=== PATIENT | female | born 1980 | race African-American/Black ===

== ENCOUNTER → 2023-11-14 | Outpatient (CLI) | payer MEDICAID ==
[2023-11-14 14:27] VITALS: BP 132/85; PULSE 110; RESP 16; TEMP 99.2; BMI 46.3
--- NOTE | 2023-11-14 15:39 | P.HPBAR ---
Bariatric H&P - History & Physicial H&P Date: 11/14/23 History & Physicial: Visit/CC: Initial Consult Patient initial contact: Initial weight: 115.666 kg Initial weight in pounds: 255.00 Height: 5 ft 2.25 in Initial BMI: 46.3 Last weight: Current weight: 115.666 kg Current weight in pounds: 255.00 Current BMI: 46.3 [place] body weight (based on NIH guidelines): 50.462 kg Excess body weight loss: 0.0% The patient is a 43 year-old F who presents for Bariatric Assessment. Patient here to discuss weight loss surgery. She has come over from [facility]. 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 Apparently nobody there is performing bariatrics. Patient's BMI is 46. She did lose significant weight with Saxenda approximately 50 pounds but after stopping it gained it all back. Patient has a sleep study scheduled in January. Describes chronic joint pain. No tobacco use. No GERD symptoms. Denies dysphagia. Had an EGD performed in 2018 she thinks was normal. Surgical history includes inguinal hernia ovarian cyst and laparoscopic cholecystectomy. Review of Systems The patient denies any acute changes in vision or hearing, no dysphagia or odynophagia, no chest pain or shortness of breath, no dysuria or hematuria, no headache, no runny nose, no rectal bleeding or melena, no unexplained weight loss Past Medical History Smoking Status: Unknown if ever smoked Surgical - Exam Vital Signs Temp Pulse Resp BP 99.2 F 110 H 16 132/85 11/14/23 14:16 11/14/23 14:16 11/14/23 14:16 11/14/23 14:16 Physical exam: General: Well-developed, well-nourished HEENT: Normocephalic, sclerae nonicteric Abdomen: Nontender, nondistended Extremities: No edema Neuro: Alert and oriented Bariatric Assessment & Plan (1) Morbid obesity with BMI of 45.0-49.9, adult Narrative/Plan: 43-year-old female with morbid obesity. Surgical options including both risks benefits and average weight loss discussed in detail. We discussed both sleeve gastrectomy and gastric bypass in most detail. She remains interested in sleeve gastrectomy. Will proceed with preoperative EGD. She will follow-up after that study to discuss surgical planning and more details. Status: Acute Bariatric Checklist Checklist: Plan: Checklist: EGD: 1. Hiatal hernia: 2. H. Pylori: HgbA1c: Vitamin D: Smoking: Primary care physician referral: Psychiatry clearance: Cardiology clearance: Sleep study: Diet journal: VTE risk score: VTE risk level: Rehab needs at discharge:
[2023-11-14 19:21] LABS: HCT 41.4 % (37.2-46.3); HGB 13.4 g/dL (12.0-15.0); MCH 29.4 pg (27.0-32.0); MCHC 32.4 g/dL (32.0-37.0); MCV 90.8 FL (80.0-97.0); Mean Platelet Volume 11.8 FL (9.5-12.2); NRBC Per 100 WBC 0 X 10*3/uL (0.00-0.01); Platelet Count 284 X 10*3/uL (140-440); RBC 4.56 X 10*6/uL (4.10-5.20); RDW 12.8 % (11.5-14.5); WBC 9.11 X 10*3/uL (4.50-10.00)
[2023-11-15 02:28] LABS: ALT 25 U/L (8-44); AST 18 U/L (13-35); Albumin 4.5 g/dL (3.8-4.9); Albumin/Globulin Ratio 1.61 Ratio (1.60-3.17); Alkaline Phosphatase 88 U/L (41-126); BUN/Creat Ratio 16.25 Ratio (12.00-20.00); Calcium 9.8 mg/dL (8.7-10.3); Carbon Dioxide 25.2 mmol/L (21.6-31.8); Chloride 103 mmol/L (96-109); Globulin 2.8 g/dL (1.6-3.3); Glucose 98 mg/dL (70-110); Iron 52 UG/DL (50-170); Potassium 4.1 mmol/L (3.5-5.5); Sodium 139 mmol/L (135-145); Total Bilirubin <0.2 mg/dL (0.3-1.2); Total Protein 7.3 g/dL (6.2-8.2)
[2023-11-16 13:53] LABS: Anabasine Urine <2.0 ng/mL (<2.0)
== END ==
LOC: BARWHC3 14:01
PROVIDERS: ATTEND Surgery
DX: E66.01 Morbid (severe) obesity due to excess calories (principal); K90.89 Other intestinal malabsorption; E55.9 Vitamin D deficiency, unspecified; Z68.42 Body mass index [BMI] 45.0-49.9, adult; Z90.49 Acquired absence of other specified parts of digestive tract
CPT/HCPCS: 36415; 80053; 80323; 82306; 82607; 82746; 83036; 83540; 84425; 85027; 93005; 99202

== ENCOUNTER → 2023-12-24 | Day surgery (SDC) | payer MEDICAID, OTHER ==
[2023-12-18 09:45] VITALS: BMI 46.6
[~2023-12-24] MED LIST: PROPOFOL 10 MG/ML 20 ML VIAL IV ONE
[2023-12-24 13:41] VITALS: RESP 16; TEMP 97.8
[2023-12-24] MEDS: LACTATED RINGERS 1,000 ML IV SCH (13:47)
[2023-12-24] MEDS: IV FLUID CONTINUATION 1,000 ML IV ONE (13:48)
--- NOTE | 2023-12-24 13:58 | P.GSHP ---
History of Present Illness H&P Date: 12/24/23 Chief Complaint: GERD 43-year-old female here today for EGD. Patient with complaints of mild reflux at times. Being evaluated for sleeve gastrectomy. No dysphagia. Past Medical History Past Medical History: Osteoarthritis (OA) Additional Past Medical History / Comment(s): pinched nerve, History of Any Multi-Drug Resistant Organisms: None Reported Past Surgical History: Cholecystectomy, Hernia Repair Additional Past Surgical History / Comment(s): ovarian cyst removed, egd Past Anesthesia/Blood Transfusion Reactions: No Reported Reaction Smoking Status: Never smoker Medications and Allergies Home Medications Medication Instructions Recorded Confirmed Type Topiramate [Topamax] 100 mg PO BID 11/15/23 12/18/23 History Gabapentin [Neurontin] 100 mg PO TID PRN 12/18/23 12/18/23 History Allergies Allergy/AdvReac Type Severity Reaction Status Date / Time No Known Allergies Allergy Verified 12/24/23 13:38 Surgical - Exam Vital Signs Temp Pulse Resp BP Pulse Ox 97.8 F 67 16 146/77 100 12/24/23 13:40 12/24/23 13:40 12/24/23 13:40 12/24/23 13:40 12/24/23 13:40 Physical exam: General: Well-developed, well-nourished HEENT: Normocephalic, sclerae nonicteric Abdomen: Nontender, nondistended Extremities: No edema Neuro: Alert and oriented Assessment and Plan (1) GERD (gastroesophageal reflux disease) Narrative/Plan: Will proceed with EGD at this time. Current Visit: Yes Status: Acute Code(s): K21.9 - GASTRO-ESOPHAGEAL REFLUX DISEASE WITHOUT ESOPHAGITIS SNOMED Code(s): 326675540
--- NOTE | 2023-12-24 14:05 | P.PCN ---
Date of Procedure: 12/24/23 Procedure(s) Performed: Preoperative Dx: GERD, presurgical Postoperative Dx: Gastritis, hiatal hernia Procedure: EGD with Bx Anesthesia: Sedation Endoscopist: Dr. Navas Specimens: Antrum Endoscopic Procedure: The patient was on the endoscopy table in the left decubitus position. The Olympus gastroscope was inserted into the oropharynx and passed under direct visualization to the region of the third portion of the duodenum. From that point the scope was slowly withdrawn inspecting all surfaces carefully. There were no neoplastic inflammatory or polypoid lesions throughout the duodenum. The pylorus was widely patent. The stomach was carefully inspected. There was mild gastritis. A biopsy of the antrum took place to rule out H. pylori. Retroflexion revealed a small hiatal hernia. The GE junction was present 1.5 to 2 cm above the diaphragmatic hiatus. The remainder of the esophagus was then carefully examined. There were no neoplastic inflammatory or polypoid lesions throughout the visualized esophagus. The patient was then taken to the recovery room in stable condition per anesthe milly guidelines. Recommendations: Await biopsy results. Resume diet. Continue presurgical workup.
[2023-12-24 14:24] VITALS: BP 119/80; PULSE 83
== END ==
LOC: ORWHC2ENDO 12:56
PROVIDERS: ATTEND Surgery
DX: K29.50 Unspecified chronic gastritis without bleeding (principal); K44.9 Diaphragmatic hernia without obstruction or gangrene; K21.9 Gastro-esophageal reflux disease without esophagitis; E66.01 Morbid (severe) obesity due to excess calories; Z68.42 Body mass index [BMI] 45.0-49.9, adult; Z79.899 Other long term (current) drug therapy
CPT/HCPCS: 81025; 88305; 43239; J2704

== ENCOUNTER → 2024-01-20 | Outpatient (CLI) | payer MEDICAID ==
[2024-01-20 14:53] VITALS: BMI 46.7
== END ==
LOC: BARWHC3 13:03
PROVIDERS: ATTEND Surgery
DX: E66.01 Morbid (severe) obesity due to excess calories (principal); Z71.3 Dietary counseling and surveillance
CPT/HCPCS: 97804; 99211

== ENCOUNTER → 2024-02-04 | Outpatient (CLI) | payer MEDICAID ==
[2024-02-04 12:55] VITALS: BP 139/60; PULSE 98; RESP 16; TEMP 98.2; BMI 45.8
--- NOTE | 2024-02-04 14:54 | P.BASOAP ---
Subjective Progress Note Date: 02/04/24 Principal diagnosis: Morbid obesity Patient returns after recent preoperative EGD. EGD showed mild gastritis and small hiatal hernia. Patient denies any significant reflux symptoms. No dysphagia. Remains interested in sleeve gastrectomy. Objective - Vital Signs Vital signs: Vital Signs Temp 98.2 F 02/04/24 12:52 Pulse 98 02/04/24 12:52 Resp 16 02/04/24 12:52 BP 139/60 02/04/24 12:52 Pulse Ox FiO2 Intake & Output 02/03/24 02/04/24 02/04/24 18:59 06:59 18:59 Weight 114.759 kg - Exam Abdomen: Soft, nontender, nondistended Assessment/Plan (1) Morbid obesity with BMI of 45.0-49.9, adult Narrative/Plan: 44-year-old female with morbid obesity. Recent EGD results reviewed. Patient with small hiatal hernia noted. Increased risk of postoperative reflux symptoms potentially even resulting in need for conversion to gastric bypass reviewed in detail. Despite that patient prefers the complication profile of the sleeve gastrectomy to the Flo-en-Y gastric bypass and would like to proceed with sleeve. Will schedule. Plan: Date: 02/04/24 Initial Weight: 115.666 kg Initial BMI: 46.3 Current Weight: 114.759 kg Current BMI: 45.8 Type of Surgery: Total Volume in Band: Previous Volume: Volume Removed: Volume Added: Band Size:
== END ==
LOC: BARWHC3 12:42
PROVIDERS: ATTEND Surgery
DX: E66.01 Morbid (severe) obesity due to excess calories (principal); K29.70 Gastritis, unspecified, without bleeding; K44.9 Diaphragmatic hernia without obstruction or gangrene; K21.9 Gastro-esophageal reflux disease without esophagitis; Z68.42 Body mass index [BMI] 45.0-49.9, adult
CPT/HCPCS: 99211

== ENCOUNTER 2024-03-13 07:30 | Inpatient (IN) | payer MEDICAID ==
[2024-03-06 11:16] VITALS: BMI 46.3
--- NOTE | 2024-03-12 15:27 | P.GSHP ---
History of Present Illness H&P Date: 03/12/24 Chief Complaint: Morbid obesity 44-year-old female initially seen in the bariatric center in November of this year. Patient with complaints of morbid obesity. Comorbidities include chronic joint pain and possible sleep apnea. No tobacco use. History of previous inguinal hernia, ovarian cyst, and lap dannielle. Recent EGD showed small hiatal hernia and mild gastritis. Patient without significant reflux symptoms. Past Medical History Past Medical History: Osteoarthritis (OA) Additional Past Medical History / Comment(s): pinched nerve, History of Any Multi-Drug Resistant Organisms: None Reported Past Surgical History: Cholecystectomy, Hernia Repair Additional Past Surgical History / Comment(s): ovarian cyst removed, egd Past Anesthesia/Blood Transfusion Reactions: No Reported Reaction Smoking Status: Never smoker - Past Family History Mother Family Medical History: No Reported History Medications and Allergies Home Medications Medication Instructions Recorded Confirmed Type No Known Home Medications 03/06/24 03/06/24 History Allergies Allergy/AdvReac Type Severity Reaction Status Date / Time No Known Allergies Allergy Verified 12/24/23 13:38 Surgical - Exam Physical exam: General: Well-developed, well-nourished HEENT: Normocephalic, sclerae nonicteric Abdomen: Nontender, nondistended Extremities: No edema Neuro: Alert and oriented Assessment and Plan (1) Morbid obesity with BMI of 45.0-49.9, adult Narrative/Plan: 44-year-old female with morbid obesity. Will proceed with laparoscopic da Dariusz assisted sleeve gastrectomy with repair hiatal hernia, possible open. The risks of bleeding, infection, stenosis, stricture, leak, abscess, fistula formation, peritonitis, poor weight loss, reflux, vomiting, conversion to an open procedure, aborting sleeve gastrectomy, CO, PE, DVT, and were discussed. The patient understands and wishes to proceed. Status: Acute Code(s): E66.01 - MORBID (SEVERE) OBESITY DUE TO EXCESS CALORIES; Z68.42 - BODY MASS INDEX [BMI] 45.0-49.9, ADULT SNOMED Code(s): 479511649
[~2024-03-13 07:30] MED LIST changes: +HEPARIN SODIUM,PORCINE 5,000 UNIT/ML 1 ML VIAL SQ PRN; +ONDANSETRON 4 MG/2 ML VIAL IVP PRN; -PROPOFOL 10 MG/ML 20 ML VIAL IV ONE
[2024-03-13] MEDS ORDERED: MIDAZOLAM 2 MG/2 ML VIAL IV PRN (10:47)
[2024-03-13] MEDS ORDERED: fentaNYL (PF) 50 MCG/ML 2 ML AMP IV PRN (10:47)
[2024-03-13] MEDS ORDERED: LIDOCAINE 1% (10MG/ML) FOR IV START INTRADERMA PRN (10:47)
[2024-03-13] MEDS: ACETAMINOPHEN TAB 500 MG TAB PO PRN (11:03)
[2024-03-13] MEDS: LACTATED RINGERS 1,000 ML IV SCH (11:21)
[2024-03-13] MEDS: ONDANSETRON 4 MG/2 ML VIAL IVP ONE (11:21)
[2024-03-13] MEDS: ENOXAPARIN 40 MG/0.4 ML SYRINGE SQ PRN (11:22)
[2024-03-13] MEDS: DEXAMETHASONE SOD PHOSPHATE 4 MG/ML 1 ML VIAL IV ONE (11:22)
[2024-03-13] MEDS: IV FLUID CONTINUATION 1,000 ML IV ONE (11:23)
[2024-03-13] MEDS ORDERED: SUCCINYLCHOLINE CHLORIDE 200 MG/10 ML VIAL IV ONE (12:14)
[2024-03-13] MEDS ORDERED: LIDOCAINE 1% INJ 10MG/ML (20 ML MDV) ONE (12:14)
[2024-03-13] MEDS ORDERED: GLYCOPYRROLATE 0.2 MG/ML 2 ML VIAL ONE (12:14)
[2024-03-13] MEDS ORDERED: MIDAZOLAM 2 MG/2 ML VIAL ONE (12:14)
[2024-03-13] MEDS ORDERED: NEOSTIGMINE 1 MG/ML 10 ML VIAL ONE (12:14)
[2024-03-13] MEDS ORDERED: PROPOFOL 10 MG/ML 20 ML VIAL IV ONE (12:14)
[2024-03-13] MEDS ORDERED: ROCURONIUM 10 MG/ML (5 ML VIAL) IV ONE (12:14)
[2024-03-13] MEDS ORDERED: fentaNYL (PF) 50 MCG/ML 2 ML AMP ONE (12:14)
[2024-03-13] MEDS ORDERED: HYDROmorphone (PF) 1 MG/ML ONE (12:14)
[2024-03-13] MEDS: BUPIVACAINE (PF) 0.25% 30 ML VIAL SQ ONE ×2 (12:46)
[2024-03-13] MEDS: LACTATED RINGERS 1,000 ML IV ONE (14:08)
[2024-03-13] MEDS ORDERED: diphenhydrAMINE 50 MG/ML 1 ML VIAL IVP PRN (14:17)
[2024-03-13] MEDS ORDERED: NALOXONE 0.4 MG/ML 1 ML VIAL IV PRN (14:17)
[2024-03-13] MEDS ORDERED: HYOSCYAMINE ORAL DROPS 1.875 MG/15 ML BOTTLE PO PRN (14:17)
[2024-03-13] MEDS ORDERED: SIMETHICONE 80 MG CHEWABLE PO PRN (14:17)
[2024-03-13] MEDS ORDERED: HYDROmorphone 0.5 MG/0.5 ML SYRINGE IVP PRN (14:17)
--- NOTE | 2024-03-13 14:22 | P.OP ---
Date of Procedure: 03/13/24 Procedure(s) Performed: PREOPERATIVE DIAGNOSIS: Morbid obesity POSTOPERATIVE DIAGNOSIS: Same PROCEDURE: Da Dariusz assisted laparoscopic sleeve gastrectomy SURGEON: Eloise EBL: Minimal ANESTHESIA: General COMPLICATIONS: None OPERATIVE PROCEDURE: Patient was placed in the operating table in the supine position. The patient was then placed under general anesthesia at that time. The abdomen was prepped and draped in the usual sterile fashion. A 5 mm optical trocar was placed in the left upper quadrant 20 cm inferior to the xiphoid process. Insufflation took place up to 15 mmHg. No adhesions were seen. A 5 mm subxiphoid incision was made and the medium Zainab retractor was used to elevate the left lobe of liver anteriorly. This was held in place using the fixed arm retractor. An additional 12 mm trocar was placed in the right paramedian location and 2 additional 8 mm trochars were placed in the left upper quadrant one medial and one lateral to the initially placed optical trocar. All of these trochars were placed along the same plane. The initial 5 was then switched to an 8 mm trocar. The robot was then docked appropriately. The 8 mm camera was placed in the left paramedian trocar site down viewing. A fenestrated bipolar was placed in arm 1, arm 3 had the vessel sealer, arm 4 had the small grasper retractor. The hiatus was inspected and there was no visible hiatal hernia. At that point I moved to the distal aspect of the greater curvature the stomach. The short gastric vasculature were divided using the vessel sealer. This dissection took place distally until we were 4 cm from the pylorus. The posterior adhesions were divided as well. The dissection then took place proximally along the stomach until the posterior short gastrics were divided and the fundus of the stomach was fully mobilized. Once the stomach was fully mobilized the blunt tipped 40-Namibian bougie dilator was advanced into the stomach and advanced all the way to the prepyloric location. The patient's stomach by palpation seemed to be of average thickness. The first firing of the stapler was a green load. Second load was a blue load. This first 2 loads were used without buttressing. The next 3 loads were blue loads with seam guard. No further loads were required. The stomach was then placed in the right upper quadrant after it was fully excised. Pressure was then dropped to 8 mm for 2-3 minutes. The staple line was inspected and no bleeding was seen. Tisseel fibrin glue was then used along the length of the staple line. The robot was then undocked. The da Dariusz laparoscope was used and the stomach was removed from the 12 mm trocar site without difficulty. The fascia at the 12mm site was closed using [id number] 0 Vicryl sutures with the laparoscopic suture passer and Larry Michael technique. The insufflation was evacuated. The skin at all 5 incisions were closed using 4-0 Monocryl sutures. Skin glue was then applied. DISPOSITION: Stable to recovery room
[2024-03-13] MEDS: HYDROmorphone 0.5 MG/0.5 ML SYRINGE IVP PRN (14:55)
[2024-03-13] MEDS: KETOROLAC 15 MG/ML 1 ML VIAL IM STA (15:21)
[2024-03-13] MEDS: ALBUTEROL NEBULIZED 2.5 MG/3 ML INHALATION SCH (16:15)
[2024-03-13] MEDS: 0.9% NACL WITH KCL 20 MEQ/L 1,000 ML IV SCH (16:15)
[2024-03-13] MEDS: DEXAMETHASONE SOD PHOSPHATE 4 MG/ML 1 ML VIAL IVP SCH (16:25)
[2024-03-13] MEDS: HYDROmorphone 1 MG/ML 1 ML SYRINGE IVP PRN (16:29)
[2024-03-13] MEDS: ACETAMINOPHEN IV (For NPO) 1,000 MG in EMPTY BAG 1 BAG IVPB SCH (17:08)
[2024-03-13] MEDS: ONDANSETRON 4 MG/2 ML VIAL IVP PRN (17:49)
--- NOTE | 2024-03-13 18:24 | P.CONS ---
History of Present Illness - Reason for Consult Consult date: 03/13/24 Medical Management Requesting physician: Ricardo Navas - History of Present Illness History of Presenting Illness: Patient is a pleasant 44-year-old female with a past medical history of morbid obesity. She is currently admitted under general surgery team status post laparoscopic sleeve gastrectomy. We were consulted for medical management throughout hospitalization. Patient was seen and fully evaluated after arrival to room 452. Patient postoperative day 0. She is currently experiencing mild postoperative hypoxia and is on 3 L O2 with SpO2 of 92%. Patient reports moderate to severe postoperative pain and nausea at this time. She denies any episodes of vomiting, chest pain, palpitations, shortness of breath, or any other complaints at this time. Review of systems: Pertinent positives and negatives as discussed in HPI, a complete review of systems was performed and all other systems are negative. Physical exam: Vital signs reviewed and stable. General: Nontoxic, no distress and appears stated age. Obese. Derm: Skin warm and dry, normal coloration for ethnicity. Head: Atraumatic, normocephalic and symmetric. Eyes: EOM's intact, no lid lag, and anicteric sclera Mouth: no lip lesions, mucus membranes moist Cardiovascular: regular rate and rhythm with normal S1S2, no murmur, positive posterior tibial pulses bilaterally, and cap refill < 2 seconds. Lungs: Respirations even, regular, and unlabored on 3 L O2. Lungs CTA bilaterally, no rhonchi, no rales, no wheezing, and no accessory muscle usage. Abdominal: soft, mild tenderness surrounding laparoscopic incision sites, no guarding, no appreciable organomegaly. Abdominal binder in place. Ext: ROM intact. No gross muscle atrophy, no edema, no contractures Neuro: Speech clear, face symmetrical and CN II-XII grossly intact with no noted focal neuro deficits Psych: Alert and oriented to person, place, time, and situation. Appropriate and pleasant affect. Assessment and Plan of Care: Acute postoperative hypoxia -Likely secondary to postoperative atelectasis -Patient to be encouraged to cough and deep breathe and use incentive spirometry 10-15 times hourly while awake. -Continue supplemental oxygen to maintain SpO2 equal to or greater than 92% currently on 3 L with SpO2 of 92%. Wean oxygen as patient tolerates. Postoperative nausea and pain -Orders placed for Compazine 10 mg IVP every 6 hours to be administered for persistent nausea unrelieved by Zofran. -Continue Ofirmev 1000 mg every 6 hours continue symptomatic care and pain management and Dilaudid 0.5 mg every 3 hours as needed for moderate pain and Dilaudid 1 mg every 3 hours as needed for severe pain. Morbid obesity with BMI of 45.0 kg/m Status post laparoscopic sleeve gastrectomy -Management per primary admitting general surgery team including DVT prophylaxis, pain management, wound/dressing management, and advancement of diet. -Patient currently on DVT prophylaxis with Lovenox. -Recommend structured outpatient weight management program after discharge. Data and imaging reviewed: -Reviewed operative note. -Vital signs reviewed and stable. Blood pressure 141/83, heart rate 96, respiratory rate 18, and SpO2 of 92% on 3 L -Preoperative labs reviewed showing hemoglobin of 13.4 and platelet count of 284,000. BMP and liver profile were normal findings. -Will follow-up on postoperative labs and place additional orders if indicated based upon these findings. Thank you for allowing us to participate in the care of this pleasant patient. Do not hesitate to contact us with questions. [facility] can be [facility] all hours of the day at [phone] or via [employer]. Patient was seen independently by Nurse Practitioner. This document was prepared using [employer] dictation software. Please allow for errors in medical physicist while rare they do occur. I reviewed the documentation as provided by the NIKKO above, who is the original author of this note. I agree with the documented assessment and plan, with the following changes: none Past Medical History Past Medical History: Osteoarthritis (OA) Additional Past Medical History / Comment(s): pinched nerve, History of Any Multi-Drug Resistant Organisms: None Reported Past Surgical History: Cholecystectomy, Hernia Repair Additional Past Surgical History / Comment(s): ovarian cyst removed, egd Past Anesthesia/Blood Transfusion Reactions: No Reported Reaction Smoking Status: Never smoker - Past Family History Mother Family Medical History: No Reported History Medications and Allergies Home Medications Medication Instructions Recorded Confirmed Type Omeprazole [PriLOSEC] 20 mg PO AC-BRKFST #90 cap 03/13/24 Rx Ondansetron Odt [Zofran Odt] 4 mg PO Q8HR PRN #9 tab 03/13/24 Rx Simethicone 40 mg/0.6 ml Drops 40 mg PO PCHS PRN #30 ml 03/13/24 Rx [Mylicon Drops] bisacodyL [Dulcolax] 5 mg PO DAILY PRN #10 tab 03/13/24 Rx Allergies Allergy/AdvReac Type Severity Reaction Status Date / Time No Known Allergies Allergy Verified 03/13/24 10:56 Physical Exam Osteopathic Statement: *. No significant issues noted on an osteopathic structural exam other than those noted in the History and Physical/Consult. Vitals: Vital Signs Temp Pulse Resp BP Pulse Ox 03/13/24 15:40 80 16 120/57 94 L 03/13/24 15:25 89 16 118/60 94 L 03/13/24 15:10 92 16 118/53 95 03/13/24 14:55 84 16 121/58 97 03/13/24 14:40 96 16 126/60 98 03/13/24 14:25 97.5 F L 99 14 132/65 95 03/13/24 10:58 98.0 F 90 18 133/93 98 Intake and Output 03/13/24 03/13/24 03/13/24 06:59 14:59 22:59 Intake Total 1150 Output Total 10 Balance 1140 Intake: IV 1150 Output: Estimated Blood Loss 10 Other: Weight 111.7 kg
[2024-03-13] MEDS: PROCHLORPERAZINE INJ 10 MG/2 ML VIAL IVP PRN (20:47)
[2024-03-14] MEDS: ENOXAPARIN 40 MG/0.4 ML SYRINGE SQ SCH (00:14)
[2024-03-14 09:42] LABS: Basophils # (A) 0.02 X 10*3/uL (0.00-0.10); Basophils % (A) 0.1 %; Eosinophils # (A) 0 X 10*3/uL (0.04-0.35); Eosinophils % (A) 0 %; HCT 42.2 % (37.2-46.3); HGB 13.9 g/dL (12.0-15.0); Lymphocytes # (A) 1.15 X 10*3/uL (0.90-5.00); Lymphocytes % (A) 7.3 %; MCH 29.5 pg (27.0-32.0); MCHC 32.9 g/dL (32.0-37.0); MCV 89.6 FL (80.0-97.0); Mean Platelet Volume 11.5 FL (9.5-12.2); Monocytes # (A) 0.44 X 10*3/uL (0.20-1.00); Monocytes % (A) 2.8 %; NRBC Per 100 WBC 0 X 10*3/uL (0.00-0.01); Neutrophils % (A) 89.4 %; Platelet Count 303 X 10*3/uL (140-440); RBC 4.71 X 10*6/uL (4.10-5.20); RDW 13.1 % (11.5-14.5); WBC 15.78 X 10*3/uL (4.50-10.00)
[2024-03-14 10:13] LABS: Chloride 105 mmol/L (96-109); Magnesium 1.8 mg/dL (1.5-2.4); Phosphorus 1.8 mg/dL (2.4-5.1); Potassium 4.8 mmol/L (3.5-5.5); Sodium 135 mmol/L (135-145)
[2024-03-14] MEDS: PANTOPRAZOLE 40 MG/10 ML VIAL IVP SCH (10:17)
[2024-03-14] MEDS: 0.9% NACL WITH KCL 20 MEQ/L 1,000 ML IV SCH (10:24)
--- NOTE | 2024-03-14 10:35 | P.PN ---
Subjective Progress Note Date: 03/14/24 Hospital Course: Patient is a pleasant 44-year-old female with a past medical history of morbid obesity. She is currently admitted under general surgery team status post laparoscopic sleeve gastrectomy. We were consulted for medical management throughout hospitalization. Physical exam: Patient seen and fully evaluated at bedside, reports moderate pain and nausea this morning. 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 Placed 20-gauge IV in patient's right AC. RN notified and to bedside to medicate at this time. Patient denies having any other complaints, questions, concerns, or needs at this time. Vital signs reviewed and stable. General: Nontoxic, no distress and appears stated age. Obese. Derm: Skin warm and dry, normal coloration for ethnicity. Head: Atraumatic, normocephalic and symmetric. Eyes: EOM's intact, no lid lag, and anicteric sclera Mouth: no lip lesions, mucus membranes moist Cardiovascular: regular rate and rhythm with normal S1S2, no murmur, positive posterior tibial pulses bilaterally, and cap refill < 2 seconds. Lungs: Respirations even, regular, and unlabored on room air. Lungs CTA bilaterally, no rhonchi, no rales, no wheezing, and no accessory muscle usage. Abdominal: soft, mild tenderness surrounding laparoscopic incision sites which are intact with no surrounding erythema, no guarding, no appreciable organomegaly. Abdominal binder in place. Ext: ROM intact. No gross muscle atrophy, no edema, no contractures Neuro: Speech clear, face symmetrical and CN II-XII grossly intact with no noted focal neuro deficits Psych: Alert and oriented to person, place, time, and situation. Appropriate and pleasant affect. Assessment and Plan of Care: Postoperative nausea and pain -Continue Zofran 4 mg IVP and/or Compazine 10 mg IVP every 6 hours for nausea unrelieved by Zofran. -Continue Ofirmev 1000 mg every 6 hours continue symptomatic care and pain management and Dilaudid 0.5 mg every 3 hours as needed for moderate pain and Dil audid 1 mg every 3 hours as needed for severe pain. Acute postoperative hypoxia, resolved -Likely secondary to postoperative atelectasis -Continue to encourage coughing and deep breathing exercises and use incentive spirometry 10-15 times hourly while awake. Morbid obesity with BMI of 45.0 kg/m Status post laparoscopic sleeve gastrectomy -Management per primary admitting general surgery team including DVT prophy laxis, pain management, wound/dressing management, and advancement of diet. -Patient currently on DVT prophylaxis with Lovenox. -Recommend structured outpatient weight management program after discharge. Data and imaging reviewed: -Vital signs reviewed and stable. Blood pressure 157/84, heart rate 102, respiratory rate 17, temp 98.6 F, and SpO2 of 97% on room air. -Postoperative labs reviewed. CBC showing leukocytosis with WBC count 15.8. BMP showing hypocarbia with bicarb of 19 otherwise normal findings. Magnesium 1.8. Thank you for allowing us to participate in the care of this pleasant patient. Do not hesitate to contact us with questions. Someone can be reached from the [facility] hospitalist group all hours of the day at [phone] or via Cued. Patient was seen independently by Nurse Practitioner. This document was prepared using [employer] dictation software. Please allow for errors in tank inspector while rare they do occur. I reviewed the documentation as provided by the NIKKO above, who is the original author of this note. I agree with the documented assessment and plan, with the following changes: none Objective - Vital Signs Vital signs: Vital Signs Temp 98.6 F 03/14/24 06:50 Pulse 102 H 03/14/24 06:50 Resp 17 03/14/24 06:50 BP 157/84 03/14/24 06:50 Pulse Ox 97 03/14/24 06:50 FiO2 Intake & Output 03/13/24 03/14/24 03/14/24 18:59 06:59 18:59 Intake Total 1370 Output Total 10 Balance 1360 Weight 111.7 kg Intake: IV 1350 Oral 20 Output: Estimated Blood Loss 10 Other: Voiding Method Toilet # Voids 2 - Labs CBC & Chem 7: 03/14/24 04:42 03/14/24 04:42
--- NOTE | 2024-03-14 12:42 | P.PN ---
Subjective Progress Note Date: 03/14/24 CHIEF COMPLAINT: Morbid obesity HISTORY OF PRESENT ILLNESS: The patient is a 44-year-old female status post sleeve gastrectomy 03/13/2024. She had nausea yesterday however resolved today. She is completing her swallow study. She is tolerating liquids. ROS: No reports of nausea and vomiting. No bowel movements. No fevers or chills. No new chest pain. No productive sputum. History of osteoarthritis. Morbid obesity, BMI 45.0. PHYSICAL EXAM: VITAL SIGNS: Reviewed CONSTITUTIONAL: Well developed and in no acute distress. EYES: Conjuctivae without sclera icterus. Extraocular movements grossly intact. HEAD, EARS, NOSE, THROAT: Moist buccal mucosa. Head is atraumatic, normocephalic. Hears conversational speech. No nasal drainage. RESPIRATORY: Non-labored respirations and equal bilateral excursions. CARDIOVASCULAR: Palpable 2+ radial pulses. ABDOMEN: Abdominal binder present. Incisions clean dry intact. No infection. MUSCULOSKELETAL: No gross deformity of the lower extremities noted. No clubbing. No cyanosis. SKIN: Good skin turgor. Well perfused. NEUROLOGIC: Cranial nerves II through XII grossly intact. No focal or lateralizing signs. PSYCH: Appropriate affect. Alert and oriented to person, place and time. CLINICAL LABS: Reviewed. WBC elevated at 15,000, expected postsurgical finding. Phosphate less than 2.0. STUDIES: Esophagram independently reviewed demonstrates no leak or obstruction. This is my independent interpretation. ASSESSMENT: 1. Morbid obesity due to excess calories, BMI 45.0. 2. Osteoarthritis. 3. Status post sleeve gastrectomy. PLAN: 1. Patient is clinically stable. May start bariatric clears. 2. Per patient, she drove herself to the hospital. Recommend continued hospitalization until completely stabilized. 3. Disposition 48-72 hours Objective - Vital Signs Vital signs: Vital Signs Temp 98.6 F 03/14/24 06:50 Pulse 92 03/14/24 12:07 Resp 17 03/14/24 06:50 BP 157/84 03/14/24 06:50 Pulse Ox 95 03/14/24 08:33 FiO2 Intake & Output 03/13/24 03/14/24 03/14/24 18:59 06:59 18:59 Intake Total 1370 Output Total 10 Balance 1360 Weight 111.7 kg Intake: IV 1350 Oral 20 Output: Estimated Blood Loss 10 Other: Voiding Method Toilet Toilet # Voids 2 - Labs CBC & Chem 7: 03/14/24 04:42 03/14/24 04:42 Labs: Abnormal Lab Results - Last 24 Hours (Table) 03/14/24 03/14/24 Range/Units 04:42 04:42 WBC 15.78 H (4.50-10.00) X 10*3/uL Immature Gran # 0.07 H (0.00-0.04) X 10*3/uL Neutrophils # 14.10 H (1.80-7.70) X 10*3/uL Eosinophils # 0 L (0.04-0.35) X 10*3/uL Carbon Dioxide 19.0 L (21.6-31.8) mmol/L Phosphorus 1.8 L (2.4-5.1) mg/dL
[2024-03-14] MEDS ORDERED: Phosphorus Replacement Protoco 1 EACH MISC MISCELLANE PRN (12:43)
[2024-03-14] MEDS: SODIUM PHOSPHATE 30 MMOL in DEXTROSE 5% IN WATER 250 ML IVPB ONE (13:36)
--- NOTE | 2024-03-14 17:53 | FL ---
EXAMINATION TYPE: FL UGI DATE OF EXAM: 03/14/2024 COMPARISON: NONE HISTORY: Postop bariatric surgery TECHNIQUE: A single/double contrast UGI study is performed. A total of 40 seconds of fluoroscopic t adela was utilized during procedure and 16 images obtained. FINDINGS: [employer] image of the abdomen shows no gross abnormality. The esophagus shows normal motility and emptying into the stomach. No evidence of hiatal hernia or s tricture noted. No extravasation of contrast. IMPRESSION: No significant abnormality..
[2024-03-15 07:41] VITALS: BP 141/79; TEMP 98.4
[2024-03-15] MEDS ORDERED: bisacodyL 5 MG TABLET.DR PO PRN (08:00)
[2024-03-15 08:49] VITALS: RESP 16
--- NOTE | 2024-03-15 11:56 | P.PN ---
Subjective Progress Note Date: 03/15/24 Hospital Course: Patient is a pleasant 44-year-old female with a past medical history of morbid obesity. She is currently admitted under general surgery team status post laparoscopic sleeve gastrectomy. We were consulted for medical management throughout hospitalization. Physical exam: Patient was seen and fully evaluated at bedside this morning. She reports feeling much better today when compared to yesterday. She reports controlled postoperative nausea and states pain currently controlled at this time. She is tolerating her bariatric clear liquid diet and denies having any other complaints or needs at this time. Vital signs reviewed and stable. General: Nontoxic, no distress and appears stated age. Obese. Derm: Skin warm and dry, normal coloration for ethnicity. Head: Atraumatic, normocephalic and symmetric. Eyes: EOM's intact, no lid lag, and anicteric sclera Mouth: no lip lesions, mucus membranes moist Cardiovascular: regular rate and rhythm with normal S1S2, no murmur, positive posterior tibial pulses bilaterally, and cap refill < 2 seconds. Lungs: Respirations even, regular, and unlabored on room air. Lungs CTA bilaterally, no rhonchi, no rales, no wheezing, and no accessory muscle usage. Abdominal: soft, mild tenderness surrounding laparoscopic incision sites which are intact with no surrounding erythema, no guarding, no appreciable organomegaly. Abdominal binder in place. Ext: ROM intact. No gross muscle atrophy, no edema, no contractures Neuro: Speech clear, face symmetrical and CN II-XII grossly intact with no noted focal neuro deficits Psych: Alert and oriented to person, place, time, and situation. Appropriate and pleasant affect. Assessment and Plan of Care: Postoperative nausea and pain improved -Continue Zofran 4 mg IVP and/or Compazine 10 mg IVP every 6 hours as needed for nausea unrelieved by Zofran. -Continue Ofirmev 1000 mg every 6 hours continue symptomatic care and pain management and Dilaudid 0.5 mg every 3 hours as needed for moderate pain and Dilaudid 1 mg every 3 hours as needed for severe pain. Leukocytosis -WBC count 15.78, reactive secondary to surgical procedure, no signs of infection. No need for further evaluation. Acute postoperative hypoxia, resolved -Likely secondary to postoperative atelectasis -Continue to encourage coughing and deep breathing exercises and use incentive spirometry 10-15 times hourly while awake. Morbid obesity with BMI of 45.0 kg/m Status post laparoscopic sleeve gastrectomy -Management per primary admitting general surgery team including DVT prophylaxis, pain management, wound/dressing management, and advancement of diet. -Patient currently on DVT prophylaxis with Lovenox. -Recommend structured outpatient weight management program after discharge. Data and imaging reviewed: -Vital signs reviewed and stable. Blood pressure 141/79, heart rate 96, respiratory rate 17, temp 98.4 F, and SpO2 of 94% on room air. -Postoperative labs reviewed. CBC showing leukocytosis with WBC count 15.8. BMP showing hypocarbia with bicarb of 19 otherwise normal findings. Magnesium 1.8. Thank you for allowing us to participate in the care of this pleasant patient. Do not hesitate to contact us with questions. Someone can be reached from the [facility] hospitalist group all hours of the day at [phone] or via Real Time Content. Patient was seen independently by Nurse Practitioner. This document was prepared using [employer] dictation software. Please allow for errors in varnish dipper while rare they do occur. I reviewed the documentation as provided by the NIKKO above, who is the original author of this note. I agree with the documented assessment and plan, with the following changes: none Objective - Vital Signs Vital signs: Vital Signs Temp 98.4 F 03/15/24 06:30 Pulse 96 03/15/24 06:30 Resp 17 03/15/24 06:30 BP 141/79 03/15/24 06:30 Pulse Ox 94 L 03/15/24 06:30 FiO2 Intake & Output 03/14/24 03/15/24 03/15/24 18:59 06:59 18:59 Other: Voiding Method Toilet Toilet # Voids 2 2 - Labs CBC & Chem 7: 03/14/24 04:42 03/14/24 04:42 Labs: Abnormal Lab Results - Last 24 Hours (Table) 03/14/24 03/14/24 Range/Units 04:42 04:42 WBC 15.78 H (4.50-10.00) X 10*3/uL Immature Gran # 0.07 H (0.00-0.04) X 10*3/uL Neutrophils # 14.10 H (1.80-7.70) X 10*3/uL Eosinophils # 0 L (0.04-0.35) X 10*3/uL Carbon Dioxide 19.0 L (21.6-31.8) mmol/L Phosphorus 1.8 L (2.4-5.1) mg/dL
[2024-03-15 12:16] VITALS: PULSE 85
--- NOTE | 2024-03-15 14:34 | P.DS ---
Providers Date of admission: 03/13/24 10:46 Expected date of discharge: 03/15/24 Attending physician: Ricardo Navas Consults: 03/13/24 14:17 Consult Physician Routine Consulting Provider: Lor Callahan Consult Reason/Comments: Medical management Do you want consulting provider notified?: Yes Primary care physician: Physician Nonstaff Hospital Course: DISCHARGE DIAGNOSES: 1. Morbid obesity due to excess calories, BMI 45.0. 2. Osteoarthritis. 3. Status post sleeve gastrectomy. COURSE: The patient is a 44-year-old female admitted for morbid obesity. She is status post sleeve gastrectomy 03/13/2024. No nausea and vomiting overnight. No acute issues. Phosphate was replaced for phosphate level less than 2.0. Her pain is well-controlled. Patient is seeking for discharge. Final results of imaging study demonstrated no acute abnormalities. Patient stable for discharge Patient Condition at Discharge: Stable Plan - Discharge Summary Discharge Rx Participant: No New Discharge Prescriptions: New bisacodyL [Dulcolax] 5 mg PO DAILY PRN #10 tab PRN Reason: Constipation Simethicone 40 mg/0.6 ml Drops [Mylicon Drops] 40 mg PO PCHS PRN #30 ml PRN Reason: Gas Omeprazole [PriLOSEC] 20 mg PO AC-BRKFST #90 cap Ondansetron Odt [Zofran Odt] 4 mg PO Q8HR PRN #9 tab PRN Reason: Nausea Discharge Medication List Omeprazole [PriLOSEC] 20 mg PO AC-BRKFST #90 cap 03/13/24 [Rx] Ondansetron Odt [Zofran Odt] 4 mg PO Q8HR PRN #9 tab 03/13/24 [Rx] Simethicone 40 mg/0.6 ml Drops [Mylicon Drops] 40 mg PO PCHS PRN #30 ml 03/13/24 [Rx] bisacodyL [Dulcolax] 5 mg PO DAILY PRN #10 tab 03/13/24 [Rx] Follow up Appointment(s)/Referral(s): Favian Salcedo MD [REFERRING] - 1 Week [place], [place] [NON-STAFF] - 03/17/24 Patient Instructions/Handouts: Nutrition after Bariatric Surgery (GEN), Laparoscopic Sleeve Gastrectomy (DC) Discharge Disposition: HOME SELF-CARE
--- NOTE | 2024-03-17 12:59 | CDI ---
Documentation Clarification Form Date: 03/17/2024 12:53:57 PM From: Melanie Rivera Phone: Admit Date: 03/13/2024 10:46:00 AM Patient Name: Virgen Chavis Visit Number: [id number] Discharge Date: 03/15/2024 03:53:00 PM ATTENTION: The Clinical Documentation Specialists (CDI) and [facility] Coding Staff appreciate your assistance in clarifying documentation. Please respond to the clarification below the line at the bottom and electronically sign. The CDI & [facility] Coding staff will review the response and follow-up if needed. Please note: Queries are made part of the Legal Health Record. If you have any questions, please contact the author of this message via ITS. Doctor/Provider: oLrna Fonseca Mild postoperativehypoxia is documented per Medical-Consult Note 03/13. Additional clarification regarding postoperative status is requested. Patients Admitting Diagnosis: Morbid obesity Post-Operative Diagnosis: Morbid obesity Procedure performed: Da Dariusz assistedlaparoscopicsleeve gastrectomy History/Risk Factors: 44yo F, morbid obesity, OA, possiblesleep apnea Clinical Indicators: Acutepostoperativehypoxia,resolved; Likely secondary topostoperativeatelectasis Treatment: Continue to encouragecoughingand deep breathing exercises and use incentive spirometry 10-15 x/hr while awake. Please clarify if postoperativehypoxia and atelectasis is a complication of the surgical procedure? [ ] Yes [ ] No [ ] Other, please specify [ X] Unable to determine (Template Last Revised: September 2020) MTDD
--- NOTE | 2024-03-18 17:11 | CDI ---
Documentation Clarification Form Date: 03/18/2024 05:08:11 PM From: Melanie Rivera Phone: Admit Date: 03/13/2024 10:46:00 AM Patient Name: Virgen Chavis Visit Number: [id number] Discharge Date: 03/15/2024 03:53:00 PM ATTENTION: The Clinical Documentation Specialists (CDI) and [facility] Coding Staff appreciate your assistance in clarifying documentation. Please respond to the clarification below the line at the bottom and electronically sign. The CDI & [facility] Coding staff will review the response and follow-up if needed. Please note: Queries are made part of the Legal Health Record. If you have any questions, please contact the author of this message via ITS. Doctor/Provider: Christian Gold Mildpostoperativehypoxiais documented per Medical-Consult Note 03/13. Additional clarification regardingpostoperative statusis requested. Patients Admitting Diagnosis:Morbid obesity Post-OperativeDiagnosis:Morbid obesity Procedure performed: Da Dariusz assistedlaparoscopicsleeve gastrectomy History/Risk Factors: 44yo F,morbid obesity,OA,possiblesleep apnea Clinical Indicators: Acutepostoperativehypoxia,resolved; Likely secondary topostoperativeatelectasis Treatment: Continue to encouragecoughingand deep breathing exercises and use incentive spirometry 10-15 x/hr while awake. Please clarify ifpostoperativehypoxiaandatelectasisis acomplication ofthe surgical procedure? [ ] Yes [ x] No [ ] Other, please specify [ ] Unable to determine (Template LastRevised: September 2020) MTDD
== END 2024-03-15 15:53 | disposition home or self-care (01) | DRG 621 ==
LOC: 2ORMAIN 10:46 → 4SSUR 14:25
PROVIDERS: ADMIT Surgery; ATTEND Surgery
DX: E66.01 Morbid (severe) obesity due to excess calories (principal); E83.39 Other disorders of phosphorus metabolism; Z68.42 Body mass index [BMI] 45.0-49.9, adult; K44.9 Diaphragmatic hernia without obstruction or gangrene; G89.18 Other acute postprocedural pain; K29.70 Gastritis, unspecified, without bleeding; R11.0 Nausea; G89.29 Other chronic pain; M19.90 Unspecified osteoarthritis, unspecified site; G47.30 Sleep apnea, unspecified; D72.828 Other elevated white blood cell count; R09.02 Hypoxemia

== ENCOUNTER → 2024-03-24 | Outpatient (CLI) | payer MEDICAID ==
[2024-03-24 13:59] VITALS: BP 135/81; PULSE 70; TEMP 98.2; BMI 42.3
--- NOTE | 2024-03-24 14:29 | P.BASOAP ---
Subjective Progress Note Date: 03/24/24 Principal diagnosis: Morbid obesity Patient returns for 2-week postop sleeve gastrectomy visit. She has done well since discharge. Minimal pain usually 1 out of 10. Pain is mostly at the extraction site. She has lost 14 pounds since day of surgery. No fevers. No heartburn. No vomiting. Mild nausea at times. She is tolerating 60 ounces of liquids daily and about 60 g of protein daily. Objective - Vital Signs Vital signs: Vital Signs Temp 98.2 F 03/24/24 13:54 Pulse 70 03/24/24 13:54 Resp BP 135/81 03/24/24 13:54 Pulse Ox FiO2 Intake & Output 03/23/24 03/24/24 03/24/24 18:59 06:59 18:59 Weight 105.687 kg - Exam Abdomen: Soft, nondistended, incisions clean and dry, minimal tenderness at extraction site Assessment/Plan (1) Morbid obesity with BMI of 45.0-49.9, adult Narrative/Plan: 44-year-old female doing well after recent sleeve gastrectomy. Continue dietary advancement. Will be seen by dietitian today. Continue light lifting. May return to work 04/06. Plan recheck with me on 04/07. Plan: Date: 03/24/24 Initial Weight: 115.666 kg Initial BMI: 46.3 Current Weight: 105.687 kg Current BMI: 42.3 Type of Surgery: Total Volume in Band: Previous Volume: Volume Removed: Volume Added: Band Size:
== END ==
LOC: BARWHC3 13:45
PROVIDERS: ATTEND Surgery
CPT/HCPCS: 97802; 99211

== ENCOUNTER → 2024-04-07 | Outpatient (CLI) | payer MEDICAID ==
[2024-04-07 15:12] LABS: HCT 40.6 % (37.2-46.3); HGB 13.3 g/dL (12.0-15.0); MCH 29.6 pg (27.0-32.0); MCHC 32.8 g/dL (32.0-37.0); MCV 90.2 FL (80.0-97.0); Mean Platelet Volume 12.9 FL (9.5-12.2); NRBC Per 100 WBC 0 X 10*3/uL (0.00-0.01); Platelet Count 274 X 10*3/uL (140-440); RDW 13.9 % (11.5-14.5); WBC 8.03 X 10*3/uL (4.50-10.00)
[2024-04-07 15:33] LABS: ALT 31 U/L (8-44); AST 20 U/L (13-35); Albumin 4.5 g/dL (3.8-4.9); Albumin/Globulin Ratio 1.73 Ratio (1.60-3.17); Alkaline Phosphatase 78 U/L (41-126); BUN/Creat Ratio 13.44 Ratio (12.00-20.00); Blood Urea Nitrogen 12.1 mg/dL (9.0-27.0); Calcium 9.9 mg/dL (8.7-10.3); Carbon Dioxide 21.3 mmol/L (21.6-31.8); Chloride 105 mmol/L (96-109); Globulin 2.6 g/dL (1.6-3.3); Glucose 93 mg/dL (70-110); Iron 68 UG/DL (50-170); Potassium 4.4 mmol/L (3.5-5.5); Sodium 141 mmol/L (135-145); Total Bilirubin 0.6 mg/dL (0.3-1.2); Total Protein 7.1 g/dL (6.2-8.2)
== END | disposition home or self-care (01) ==
LOC: LABWHC1 10:48
PROVIDERS: ATTEND Surgery
DX: E66.01 Morbid (severe) obesity due to excess calories
CPT/HCPCS: 36415; 80053; 82306; 82607; 82746; 83540; 84425; 85027

== ENCOUNTER → 2024-04-07 | Outpatient (CLI) | payer MEDICAID ==
[2024-04-07 10:13] VITALS: BP 104/64; PULSE 80; TEMP 98; BMI 41.7
--- NOTE | 2024-04-07 11:18 | P.BASOAP ---
Subjective Progress Note Date: 04/07/24 Principal diagnosis: Morbid obesity 44-year-old female known to our service. Last seen 03/24. Since her last visit she has done well. Doing well with protein and liquid intake. No nausea or vomiting. Mild soreness at her umbilical incision site. She is afebrile. Normal heart rate. Objective - Vital Signs Vital signs: Vital Signs Temp 98 F 04/07/24 10:11 Pulse 80 04/07/24 10:11 Resp BP 104/64 04/07/24 10:11 Pulse Ox FiO2 Intake & Output 04/06/24 04/07/24 04/07/24 18:59 06:59 18:59 Weight 104.326 kg - Exam Abdomen: Soft, mild tenderness at umbilical incision site, no palpable hernia, nondistended Assessment/Plan (1) Morbid obesity with BMI of 45.0-49.9, adult Narrative/Plan: 44-year-old female doing well after previous sleeve gastrectomy. Continue antiacid therapy. Continue gradual advancement of diet. May resume exercise at this time. Check 1 month labs. Follow-up 6 weeks. Plan: Date: 04/07/24 Initial Weight: 115.666 kg Initial BMI: 46.3 Current Weight: 104.326 kg Current BMI: 41.7 Type of Surgery: Total Volume in Band: Previous Volume: Volume Removed: Volume Added: Band Size:
== END ==
LOC: BARWHC3 09:45
PROVIDERS: ATTEND Surgery
CPT/HCPCS: 99211

== ENCOUNTER → 2024-05-19 | Outpatient (CLI) | payer MEDICAID ==
[2024-05-19 13:22] VITALS: BP 114/75; PULSE 87; RESP 16; TEMP 98.8; BMI 39.5
--- NOTE | 2024-05-19 14:57 | P.BASOAP ---
Subjective Progress Note Date: 05/19/24 Principal diagnosis: Morbid obesity Patient returns for recheck. Last seen 1 month ago. Patient says the soreness at her umbilicus is gone. Patient had her 1 month labs checked last visit. Vitamin D was slightly low at 27.9. Since then patient started her daily vitamins. She is lost 12 pounds since her last visit. Only mild GERD symptoms while taking omeprazole. She has been more constipated. Has a bowel movement every 4 to 7 days and has to strain. Objective - Vital Signs Vital signs: Vital Signs Temp 98.8 F 05/19/24 13:20 Pulse 87 05/19/24 13:20 Resp 16 05/19/24 13:20 BP 114/75 05/19/24 13:20 Pulse Ox FiO2 Intake & Output 05/18/24 05/19/24 05/19/24 18:59 06:59 18:59 Weight 98.883 kg - Exam Abdomen: Soft, nontender, nondistended Assessment/Plan (1) Morbid obesity with BMI of 45.0-49.9, adult Narrative/Plan: Patient doing well at this time. Add MiraLAX. Continue omeprazole. Follow-up 1 month. Check 3-month labs at that time. Continue daily vitamins. Plan: Date: 05/19/24 Initial Weight: 115.666 kg Initial BMI: 46.3 Current Weight: 98.883 kg Current BMI: 39.5 Type of Surgery: Vertical Sleeve Gastrectomy Total Volume in Band: Previous Volume: Volume Removed: Volume Added: Band Size:
== END ==
LOC: BARWHC3 13:10
PROVIDERS: ATTEND Surgery
DX: E66.01 Morbid (severe) obesity due to excess calories (principal); K21.9 Gastro-esophageal reflux disease without esophagitis; Z68.39 Body mass index [BMI] 39.0-39.9, adult; Z71.3 Dietary counseling and surveillance
CPT/HCPCS: 99211